=== PATIENT | male | born 1975 | race Two or more races ===

== ENCOUNTER 2017-03-02 12:01 | Emergency (ER) | payer OTHER ==
[2017-03-02 12:25] VITALS: O2SAT 97
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
[2017-03-02] MEDS ORDERED: OXYCODONE/APAP 5/325 TAB PO ONE (15:09)
[2017-03-02] MEDS ORDERED: IOPAMIDOL (ISOVUE-300) 100 ML BTL ONE (15:12)
[2017-03-02 18:10] VITALS: BP 165/104; PULSE 61; RESP 18; TEMP 98.2
== END 2017-03-02 18:10 | disposition home or self-care (01) ==
DX: S22.23XA Sternal manubrial dissociation, initial encounter for closed fracture (principal); W22.8XXA Striking against or struck by other objects, initial encounter; Y92.89 Other specified places as the place of occurrence of the external cause; Y93.89 Activity, other specified
CPT/HCPCS: 82947-QW; Q9967